=== PATIENT | male | born 2000 | race Caucasian/White ===

== ENCOUNTER 2018-12-24 02:11 | Emergency (ER) | payer OTHER ==
[~2018-12-24] VITALS: Ht 182.9 cm; Wt 112.7 kg
[2018-12-24 02:56] LABS: BASO % 0.1 % (0.0-2.0); EOS # 0.1 (0.0-0.7); EOS % 0.7 % (0-4.0); GRAN # 3.4 (1.4-6.5); GRAN % 46.4 % (42.2-75.2); HEMOGLOBIN 13.4 g/dl (12.5-16.1); LYMPH # 3.3 (1.2-3.4); LYMPH % 45.8 % (20.0-51.0); MEAN CELL VOLUME 88 fl (80.0-95.0); MEAN CORPUSCULAR HEMOGLOBIN 30 pg (26.0-32.0); MEAN CORPUSCULAR HGB CONC 34 g/dl (33.0-37.0); MEAN PLATELET VOLUME 9.9 fl (7.4-10.4); MONO # 0.5 (0.1-0.6); MONO % 6.9 % (1.7-9.3); PLATELET COUNT 249 K/mm3 (130-400); RED BLOOD COUNT 4.42 M/mm3 (4.20-5.60)
[2018-12-24 03:13] LABS: ALBUMIN 4.3 gm/dL (3.5-5.0); BILIRUBIN,TOTAL 0.4 mg/dL (0.0-1.0); C-REACTIVE PROTEIN 0.6 mg/dL (0.0-0.9); CALCIUM 9.6 mg/dL (8.4-10.2); CREATININE, serum 0.84 (0.66-1.25); POTASSIUM 3.7 mmol/L (3.4-5.0); TOTAL PROTEIN 7.6 gm/dL (6.4-8.2)
[2018-12-24 04:30] LABS: COLLECTION METHOD CLEAN CATCH
[2018-12-24 04:37] LABS: MUCOUS Present /lpf; PH 6 (5-8); SQUAMOUS EPITHELIAL None Seen /hpf; URINE APPEARANCE Clear; URINE BACTERIA None Seen /hpf; URINE BILIRUBIN Negative (NEGATIVE); URINE BLOOD Negative (NEGATIVE); URINE COLOR Straw; URINE GLUCOSE Negative (NEGATIVE); URINE KETONE Negative (NEGATIVE); URINE LEUKOCYTE ESTERASE Negative (NEGATIVE); URINE NITRATE Negative (NEGATIVE); URINE PROTEIN(semi-quant) Negative (NEGATIVE); URINE RBC 0-2 /hpf; URINE UROBILINOGEN Negative (NEGATIVE)
--- NOTE | 2018-12-24 09:25 | NUR ---
PATIENT ADMITED INTO ROOM 349 FROM ER. PATIENT CURRENTLY REPORTS ABDOMINAL PAIN IS BETTER AND DENIES NEED FOR PAIN MEDS. ABDOMIN IS ROUND, SOFT AND WITH POSITIVE BOWL SOUNDS. NO C/O N/V. IV FLUIDS INFUSING INTO LEFT AC IV. CLEAR LIQUID DIET. HEAD TO TOE ASSESSMENT WNL. PATIENT'S GF AT BEDSIDE. ORIENTED TO ROOM. CALL LIGHT IN REACH.
[2018-12-24 09:31] VITALS: BP 153/76; PULSE 87; TEMP 98.2
--- NOTE | 2018-12-24 15:35 | NUR ---
PATIENT C/O GARNER. GAVE PRN TYLENOL. TOLERATING CLEAR LIQUID DIET WELL. DENIES ABDOMINAL PAIN AT THIS TIME. NO OTHER NEEDS.
[2018-12-24 16:00] VITALS: BP 125/71; PULSE 54; TEMP 97.6
--- NOTE | 2018-12-24 20:15 | NUR ---
Pt. laying in bed watching TV with girlfriend. Pt. is A&OX3, assessment complete. INT to lg. ac patent. Pt. denies pain or other needs at this time. Call light within reach.
[2018-12-24 20:31] VITALS: BP 117/68; PULSE 54; TEMP 98.1
[2018-12-25] VITALS (10 sets, daily range): BP systolic 119–141; BP diastolic 55–78; PULSE 42–89; TEMP 97.6–98.4
--- NOTE | 2018-12-25 05:49 | NUR ---
Pt. slept well through the night. Pt. remains A&OX3. INT to lt. ac patent. Pt. denies pain or other needs.
--- NOTE | 2018-12-25 07:00 | NUR ---
Pt in bed eyes closed with female visitor in recliner next to bed upon entering room. Pt awoken with entry. OrientedX4 with no confusion and no complaints of pain. Educated on NPO status for surgery. Questions invited and answered. Pt does not appear anxious or concerned regarding upcoming surgery. Pt wishes to sleep more - call light in reach, lights off and door closed
--- NOTE | 2018-12-25 10:50 | NUR ---
First visit from the slipper maker. [facility]isted Living [facility] Director prayed with patient and parents. No other needs right now.
--- NOTE | 2018-12-25 13:47 | NUR ---
SW student met with patient to discuss discharge plan. Also present was patient's girlfriend, mother, and father. Patient lives in [place], [place], but was in [place] to visit his girlfriend over the weekend. Patient does not currently see a PCP back home but parents stated they need to get one set up. Patient uses the [facility]. Patient does not have a DPOA-HC completed and was not interested in completing one at this time. Patient is to have surgery today (12/25). Patient and family may stay in town for a day or two after discharge, but parents will drive patient back home to [place], [place], when ready. No identified needs at this time.
--- NOTE | 2018-12-25 17:52 | NUR ---
Patient alert and oriented, answers questions appropriately. Abdomen soft, non distended, non tender. Lap sites x3 with edges well approximated, no drainage noted. -Flatus. Post op exercises reviewed with patient.
--- NOTE | 2018-12-25 19:46 | NUR ---
Patient and family educated on discharge instructions. Personal belongings and discharge instructions given to patient. Pain medication script sent with patient. Patient ambulated out with surgical staff to personal vehicle with family driving. All questions and concerns answered. INT to left forearm discontinued. Denies any further needs or questions.
== END 2018-12-25 19:49 | disposition home or self-care (01) ==
LOC: COL.ER 02:11 → SURG 05:58
PROVIDERS: Emergency Medicine; ADMIT Surgery
DX: K81.0 Acute cholecystitis (principal)
CPT/HCPCS: C9113; G0378; J0690; J1100; J1885; J1956; J2270; J2405; J2543; J2704; J3010; J7030; J7120; Q9967